=== PATIENT | female | born 1980 | race Caucasian/White ===

== ENCOUNTER 2017-03-01 12:26 | Emergency (ER) | payer MEDICAID ==
[2012-07-29 09:06] VITALS: BMI 28.8
[~2017-03-01 12:26] MED LIST: MOTRIN800 MG PO; PERCOCET 5/3251 TA1 PO; PRENATABS RX TA1 TAB PO
== END 2017-03-01 13:18 | disposition home or self-care (01) ==
LOC: D.ER 12:26
DX: B02.9 Zoster without complications (principal)

== ENCOUNTER → 2019-04-06 10:20 | Outpatient (CLI) | payer MEDICAID ==
[2012-07-29 09:06] VITALS: BMI 28.8
== END | disposition home or self-care (01) ==
LOC: D.RAD 10:20
PROVIDERS: ATTEND Emergency Medicine
DX: S90.31XA Contusion of right foot, initial encounter (principal)